=== PATIENT | female | born 1980 | race Caucasian/White ===

== ENCOUNTER 2020-08-29 17:39 | Emergency (ER) | payer MEDICAID ==
[~2020-08-29] VITALS: Ht 154.9 cm; Wt 49.2 kg
[2020-08-29 17:52] VITALS: BP 114/79
--- NOTE | 2020-08-29 18:56 | NUR ---
[employer]: PT TO ROOM FROM LOBBY AT THIS TIME WITH ALMOND BLANCHER HAND, AMBULATORY WITH STEADY GAIT
--- NOTE | 2020-08-29 20:13 | NUR ---
Provider came to talk to patient, pt became upset and left. Pt is A&O, in decision making capactiy. Did not want to wait for DC instrcutions.
== END 2020-08-29 20:17 | disposition home or self-care (01) ==
LOC: ED 20:10
DX: F11.10 Opioid abuse, uncomplicated (principal); Z76.0 Encounter for issue of repeat prescription; F17.210 Nicotine dependence, cigarettes, uncomplicated
CPT/HCPCS: 99281